=== PATIENT | male | born 1930 | race Caucasian/White ===

== ENCOUNTER 2018-02-25 12:21 | Inpatient (IN) ==
[2018-02-25 13:09] LABS: Basophils # 0.1 10*3/uL (0.0-0.2); Basophils % 0.8 % (0.0-0.8); Eosinophils # 0.3 10*3/uL (0.0-0.87); Eosinophils % 2.4 % (0.00-10.9); Hematocrit 48.6 VOL% (42.0-52.0); Hemoglobin 16.1 GM/DL (14.0-18.0); Immature Granulocytes % 0.7 %; Immature Granulocytes Absolute 0.07 #; Lymphocytes # 3.2 10*3/uL (1.4-4.0); Lymphocytes % 29.8 % (21.2-54.2); Mean Corpuscular HGB Conc 33.1 GM/DL (32-36); Mean Corpuscular Hemoglobin 30 PG (27-34); Mean Corpuscular Volume 89.2 FL (87-102); Mean Platelet Volume 11.1 FL (9.6-12.0); Monocytes # 0.8 10*3/uL (0.11-0.8); Monocytes % 7.8 % (1.7-12.7); Neutrophils # 6.3 10*3/uL (1.4-7.4); Neutrophils % 58.5 % (38.7-73.9); Platelet Count 228 T/CUMM (130-400); Red Blood Count 5.45 MC/CUMM (3.8-5.5); White Blood Count 10.7 T/CUMM (4-12)
[2018-02-25 13:16] LABS: PT Patient Result 10.7 SECS
[2018-02-25 13:19] LABS: Albumin 4.1 G/DL (3.4-5.0); Bilirubin,Total 0.9 MG/DL (0.2-1.0); Calcium 9.3 MG/DL (8.5-10.1); Osmolality,Calculated 279.7 MOS/KG (273-304); Potassium 4.4 MMOL/L (3.5-5.1); Total Protein 7.2 G/DL (6.4-8.3)
[2018-02-25] MEDS ORDERED: LACTULOSE 20 GM/30 ML UDCUP PO PRN (16:42)
[2018-02-25] MEDS ORDERED: ACETAMINOPHEN 325 MG TABLET PO PRN (16:42)
[2018-02-25] MEDS ORDERED: DOCUSATE SODIUM 100 MG CAPSULE PO PRN (16:42)
[2018-02-25] MEDS ORDERED: LABETALOL 20 MG/4 ML SYRINGE IV PRN (16:48)
[2018-02-25] MEDS ORDERED: PANTOPRAZOLE 40 MG TABLET PO SCH (17:00)
[2018-02-25] MEDS ORDERED: ASPIRIN 325 MG TABLET PO SCH (17:00)
[2018-02-25 17:55] LABS: Risk Ratio 4.02; VLDL CHOLESTEROL 14.4 MG/DL
[2018-02-25 17:58] LABS: Troponin I Only 0.111 NG/ML (0.00-0.045)
[2018-02-25] MEDS ORDERED: ENOXAPARIN 100 MG/ML SYRINGE SUBCUT SCH (18:00)
[2018-02-25] MEDS ORDERED: ENALAPRIL 2.5 MG/2 ML VIAL IV PRN (18:00)
[2018-02-25 18:02] LABS: Troponin I Only 0.111 NG/ML (0.00-0.045)
[2018-02-25] MEDS ORDERED: ENOXAPARIN 40 MG/0.4 ML SYRINGE SUBCUT SCH (21:00)
[2018-02-26 06:43] VITALS: BP 67/12
== END 2018-02-25 21:01 | disposition expired | DRG 64 ==
LOC: EDUNIT# → EDBD → N.ED 12:21 → N.EDINP 14:03 → N.2E 15:38
PROVIDERS: ADMIT Hospitalist; ATTEND Hospitalist